=== PATIENT | male | born 1975 | race Caucasian/White ===

== ENCOUNTER 2022-11-29 20:42 | Emergency (ER) | payer MEDICAID, SELFPAY ==
[2022-11-29 20:44] VITALS: BP 127/85; PULSE 91; RESP 18; TEMP 36.7; O2SAT 98; BMI 23.3
--- NOTE | 2022-11-29 20:57 | EX.ED.DYSGE1 ---
HPI History of Present Illness Chief Complaint: Cold Sx Informant: patient Narrative Narrative: Patient presents with concern for sinusitis or COPD. Patient states about a week or 10 days ago he started to get nasal drainage and discharge. He has developed pressure and pain on the side of his face and nose on the right side. He is getting yellow drainage out. He has had nonspecific fevers at home. He is getting postnasal drip and coughing some out. He also notes that he has been wheezing more. He does have albuterol inhaler at home but he has been using it more. He has never been officially diagnosed with COPD. But he is smoked since he was 9 years old and he is suspicious he might have some. He is seeing a physician soon to be evaluated for this. He is not having chest pain. No leg pain or swelling. He has been eating and drinking normally. Nothing specifically makes his symptoms worse. The albuterol does make the breathing better but does not change the nasal drainage. PFSH PFSH Home Medications albuterol sulfate 90 mcg/actuation aerosol inhaler (Ventolin HFA) 2 puff inhalation Q4H PRN PRN Wheezing ##1 11/29/22 [Rx Last Taken Unknown] amoxicillin 875 mg-potassium clavulanate 125 mg tablet 875 mg PO Q12H #20 TABLETS 11/29/22 [Rx Last Taken Unknown] prednisone 20 mg tablet 60 mg PO DAILY #15 TABLETS 11/29/22 [Rx Last Taken Unknown] Allergy/AdvReac Type Severity Reaction Status Date / Time poison manuel extract Allergy Other Verified 11/29/22 20:46 Social History Smoking Status: Current every day smoker tobacco type: cigarettes ROS ROS ED ROS Narrative A complete review of systems was performed and is negative except as documented in the history of present illness. Some specific details below. Constitutional: No recent fevers or chills. He states his normal temperature is about 97.5 and he has gotten some temps in the mid 98's. EYE: No discharge, visual complaints, or pain. ENT: Right cheek discomfort and nasal drainage. No sore throat. No trouble swallowing. CV: No chest pain palpitations or pain with deep breaths. Respiratory: See history of present illness. Wheezing improved with treatment. GI: No abdominal pain. No nausea vomiting diarrhea. No blood in stool. : No frequency dysuria or hematuria. Musculoskeletal: No recent trauma. No pains. No swelling. No myalgias. Skin: No rash. Nondiaphoretic. Neuro: No weakness or numbness. Endocrine: No polyuria or polydipsia. EXAM Physical Exam Narrative Exam Narrative: CONSTITUTIONAL: Patient is nontoxic in appearance. The patient looks comfortable. Work of breathing looks normal. He carries on normal conversation. HEENT: No notable trauma. Mucous membranes moist. He does have some mild right-sided sinus tenderness. No facial swelling though. He also has some white-yellow discharge on the right side only. The left nare is clear. No forehead tenderness. No dental pain. EYES: No conjunctival injection. No proptosis. NECK:No JVD. No stridor. CARDIOVASCULAR: Regular rate. Regular rhythm. No notable murmur. No JVD. RESPIRATORY: No respiratory distress. Breathing is unlabored. However, he does have some mild expiratory wheezing. No rhonchi. No pain with a deep breath. GASTROINTESTINAL: Not distended. Bowel sounds are normal. No tenderness. GENITOURINARY: No tenderness over the bladder. No CVA tenderness. MUSCULOSKELETAL: Atraumatic. No peripheral edema. No cord. No tenderness along the deep venous system. No asymmetry. No distended veins. NEUROLOGICAL: Patient is alert and appropriate. No focal deficit noted. SKIN: No noted rashes. No diaphoresis. PSYCHIATRIC: Patient is calm. Mood is appropriate. Const Vital Signs: 11/29/22 20:44 11/29/22 21:04 11/29/22 21:02 Temperature 98.0 F Temperature Source Temporal Pulse Rate 91 88 Respiratory Rate 18 18 Respiratory Effort Normal Respiratory Depth Normal Respiratory Pattern Normal Normal Blood Pressure 127/85 H Blood Pressure Mean 99 Pulse Ox 98 Oxygen Delivery Method Room Air MDM MDM MDM Narrative Medical decision making narrative: Patient will be given a DuoNeb treatment. I will initiate steroid therapy as he is breaking through his home albuterol. Since he has a likely diagnosis of COPD with a change in quantity or character sputum we will start antibiotics. He also has symptoms of sinusitis in excess of a week so I think we will use Augmentin which should provide appropriate coverage for potential sinusitis and COPD exacerbation. Patient requested COVID test which is also being done. Patient has equal breath sounds and there is no indication of pneumothorax clinically. I do not think an x-ray is required as we are adding antibiotics. I also Blood work is needed. This patient is overall doing well he is just having some exacerbations. Patient is feeling and sounding better after his breathing treatment. COVID test is negative. We reviewed treatment and reasons to return. Discharge Plan Triage Chief Complaint: Cold Sx ED Provider: Fredy Fuller Dx/Rx/DC Orders Clinical Impression: Asthma exacerbation in COPD, Right maxillary sinusitis, Smoking addiction Instructions: ED COPD Flare, ED Sinusitis (Antibiotic Treatment) Prescriptions: New albuterol sulfate [Ventolin HFA] 90 mcg/actuation HFA aerosol inhaler 2 puff inhalation Q4H PRN PRN (Reason: Wheezing) Qty: 1 0RF Rx Instructions: Please dispense with spacer. prednisone 20 mg tablet 60 mg PO DAILY Qty: 15 0RF amoxicillin-pot clavulanate [amoxicillin-pot clavulanate] 875-125 mg tablet 875 mg PO Q12H Qty: 20 0RF Primary Care Provider: SHELLEY JOSEPH Referrals: Alona Callaway MD [Med Staff - [employer]] - 3-5 Days if not improving NOT,DEFINED [Non-Staff] - Disposition Disposition: Home, Self Care
[2022-11-29] MEDS: predniSONE 20 MG Tablet 60 MG PO (21:01)
[2022-11-29] MEDS: Amox/Clavulanate 875 MG Tablet PO (21:01)
[2022-11-29 21:02] VITALS: PULSE 88; RESP 18
[2022-11-29] MEDS: Ipratropium/Albuterol Sulfate 3 ML AMPUL.NEB INHALATION (21:02)
[2022-11-29 22:02] VITALS: BP 124/70; PULSE 80; RESP 18; O2SAT 97
== END 2022-11-29 22:02 | disposition home or self-care (01) ==
LOC: ED 21:23
PROVIDERS: Emergency Provider Emergency Medicine; Visit Provider Emergency Medicine
DX: J44.1 Chronic obstructive pulmonary disease with (acute) exacerbation (principal); R09.82 Postnasal drip; F17.210 Nicotine dependence, cigarettes, uncomplicated; J32.0 Chronic maxillary sinusitis
CPT/HCPCS: 87811; 94640; 99283

== ENCOUNTER 2023-02-06 10:01 | Emergency (ER) | payer MEDICAID, SELFPAY ==
[2023-02-06 10:02] VITALS: BP 130/111; PULSE 81; RESP 14; TEMP 36.7; O2SAT 97; BMI 27.8
--- NOTE | 2023-02-06 10:18 | EDS_ITS ---
HPI History of Present Illness Chief Complaint: Dental Informant: patient Onset/Context/Timing Onset: Days Context: Gradual Onset Timing: Continuous Current Severity: Mild Maximum Severity: Mild Relieved by: NSAIDs Associated Symptoms Assocated Symptom - Dental: jaw swelling and cold sensitivity; Negative for fever or face swelling Narrative Narrative: 39-year-old male complaining of left lower jaw molar pain. Said he lost the cap in about a week ago and the pain is getting worse. Mild swelling. No fever. No trauma. Patient is requesting something stronger than NSAIDs. Prior similar symptoms: Yes Recent Illness/Hospitalization: No PFSH PFSH Home Medications albuterol sulfate 90 mcg/actuation aerosol inhaler (Ventolin HFA) 2 puff inhalation Q4H PRN PRN Wheezing ##1 11/29/22 [Rx Last Taken Unknown] amoxicillin 875 mg-potassium clavulanate 125 mg tablet 875 mg (0.875 x 875-125 mg) PO Q12H #20 TABLETS 11/29/22 [Rx Last Taken Unknown] prednisone 20 mg tablet 60 mg (3 x 20 mg) PO DAILY #15 TABLETS 11/29/22 [Rx Last Taken Unknown] penicillin V potassium 500 mg tablet 500 mg PO 4X/DAY #40 tabs 02/06/23 [Rx Last Taken Unknown] Allergy/AdvReac Type Severity Reaction Status Date / Time poison manuel extract Allergy Other Verified 02/06/23 10:02 Social History Smoking Status: Current every day smoker tobacco type: cigarettes ROS ROS ED ROS Narrative Denies. Review of Systems ROS Unobtainable: Denies due to encephalopathy Constitutional Constitutional ED: Denies chills or fever(s) Eyes Eyes: Denies blurry vision ENT ENT ED: Denies ear pain Cardiovascular Cardiovascular: Denies chest pain Respiratory/Chest Respiratory/Chest: Denies cough or dyspnea Gastrointestinal Gastrointestinal: Reports diarrhea; Denies abdominal pain Genitourinary Genitourinary ED: Denies dysuria or hematuria Musculoskeletal Musculoskeletal: Denies arthralgias Integumentary Denies abscess Neurologic Neurologic: Denies headache(s) Psychiatric Psychiatric: Denies anxiety Endocrine Endocrinology: Denies cold intolerance Hematologic/Lymphatic Hematologic/Lymphatic: Denies easy bleeding Allergic/Immunologic Allergic/Immunologic ED: Denies mouth swelling EXAM Physical Exam Narrative Exam Narrative: Well-appearing middle-age male. Vital signs stable afebrile. HEENT exam patient has very poor dentition multiple degenerating, teeth. Cavities. His last he denies any chest pain lower molar is tender to palpation. There is a minimal bulge in the top of the tooth or loss of 8.. There is no significant gingival or facial swelling. No chest pain no swelling underneath his tongue. No trouble breathing or swallowing. Neck is nontender no lymphadenopathy. Lungs are clear. Heart regular rhythm no murmur. Abdomen soft. Otherwise exam unremarkable. Const Vital Signs: 02/06/23 10:02 Temperature 98.1 F Temperature Source Temporal Pulse Rate 81 Respiratory Rate 14 Blood Pressure 130/111 H Blood Pressure Mean 117 Pulse Ox 97 Oxygen Delivery Method Room Air Positive well nourished and well developed; Negative for obese, cachectic, contractures or unkempt General Appearance ED: well developed and NAD; Negative for unkempt, cachectic or contractures Nutritional Appearance: Negative for cachectic or obese HEENT Denies other Negative for trauma, tenderness or other Face and Sinus: sinuses nontender Mouth ED: Yes oral and palatal mucosa normal, Yes lips normal, Yes tongue normal, Yes salivary gland normal, No mouth trauma, No oral and palatal mucosa abnormal and No salivary gland abnormal Mouth: oral and palatal mucosa normal, lips normal, tongue normal, salivary gland normal, No mouth trauma, No oral and palatal mucosa abnormal and No salivary gland abnormal Teeth and Gingiva: abnormal tooth and associated gingiva, caries, poor dentition and teeth discoloration Throat: posterior oropharynx normal Eyes PERRL and EOMs intact bilaterally General Eye ED: Negative for pale conjunctiva or scleral icterus Visual Acuity: Negative for other Neck no lymphadenopathy, supple and no JVD General: normal visual inspection; Negative for anterior neck swelling, tenderness or submandibular swelling Lymph Lymphatic: no lymphadenopathy noted; Negative for lymphadenopathy Chest Wall inspection of chest normal and palpation of chest normal Resp normal respiratory effort, no retractions and clear to auscultation bilaterally Effort and Inspection: Negative for other Cardio regular rate, regular rhythm, S1 normal heart sound, S2 normal heart sound and no murmurs Jugular Venous Distention: Negative for other Palpation: Negative for palpable S3 or palpable S4 Rate: Negative for bradycardia or tachycardic Rhythm: Negative for abnormal rhythm GI normal to inspection, nondistended, normoactive bowel sounds, non-tender, non- distended and no masses Inspection: Negative for other Palpation: soft Bladder / Kidney Exam: No other Back/Spine Negative for no CVA tenderness General Back: Negative for CVA tenderness Cervical Spine: Negative for other Thoracic Spine / Upper Back: Negative for thoracic spinal tenderness or paraspinal muscle tenderness Extremity normal to inspection and no joint enlargement General Extremety ED: Negative for edema General Extremity: Negative for edema Neuro oriented x3, CN's II-XII intact bilaterally and moves all extremities Sensorium / Orientation: alert, oriented to person, oriented to place and oriented to time; Negative for orientation impaired Motor Exam: strength 5/5 throughout Psych mental status grossly normal Appearance: Negative for unkempt Attitude: No agitated and No other Mood & Affect: Negative for depressed, anxious or tearful Skin no rashes or lesions noted and no wounds General Skin Exam: Negative for other MDM MDM MDM Narrative Medical decision making narrative: 47-year-old male complaint left lower molar dental pain after losing it. Started on Pen-Vee K. Follow-up with local dentist. Tylenol Motrin for pain. He requested something stronger than Motrin for pain explained to him that typically did not write for narcotic pain medications for dental pain. When the nurse went in to medicate the patient discharged to home. He was handed a penicillin for his dental infection and Motrin for pain. He questioner what that was. He said it would not help his pain. He threw the medication at her and told her to stick it up a part of her anatomy. Patient was asked to leave and walked out. I had previously told him that I typically do not write narcotic pain medications for dental pain. History & Record Review Discussion w/independent historian: Patient Discharge Plan Triage Chief Complaint: Dental ED Provider: Mauri Cox Dx/Rx/DC Orders Clinical Impression: Pain, dental, Dental infection Instructions: ED Dental Pain Prescriptions: New penicillin V potassium 500 mg tablet 500 mg PO 4X/DAY Qty: 40 0RF No Action albuterol sulfate [Ventolin HFA] 90 mcg/actuation HFA aerosol inhaler 2 puff inhalation Q4H PRN PRN (Reason: Wheezing) Qty: 1 0RF Rx Instructions: Please dispense with spacer. prednisone 20 mg tablet 60 mg PO DAILY Qty: 15 0RF amoxicillin-pot clavulanate [amoxicillin-pot clavulanate] 875-125 mg tablet 875 mg PO Q12H Qty: 20 0RF Primary Care Provider: SHELLEY JOSEPH Referrals: SHELLEY JOSEPH [Other] Activity Restrictions/Additional Instructions: Call and follow-up with either your dentist or a local dentist soon as possible. Motrin and Tylenol for pain. Ice to your jaw. The antibiotic Pen-Vee K 1 pill 4 times a day till gone. Disposition Disposition: Home, Self Care
[2023-02-06] MEDS: Penicillin Vk 250 MG Tablet 500 MG PO (10:35)
--- NOTE | 2023-02-06 10:40 | ED.RN ---
THIS RN INTO ROOM TO DC PATIENT. PT GIVEN PENICILLIN, ATTEMPTED TO GIVE PT MOTRIN. PT STATES ARE YOU FUCKING KIDDING ME, I NEED NORCO AND PERCOCET. THIS RN CONFIRMS WITH THAT NO NARCOTICS ARE GOING TO BE GIVEN.PT SCREAMS AT THIS RN OPENING HIS MOUTH STATING LOOK AT MY FUCKING TEETH. THIS RN ASKS PT IF HE WANTS MOTRIN.PT STATES SHOW IT UP YOUR FUCKING ASS YOU ARE ALL FUCKING IDIOTS. PT THROWS COFFEE AND EMPTY PILL CUP ACROSS ROOM. 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 PT STATES THIS IS FUCKING RIDICULOUS
== END 2023-02-06 10:54 | disposition home or self-care (01) ==
LOC: ED 10:29
PROVIDERS: Emergency Provider Emergency Medicine; Visit Provider Emergency Medicine
DX: K04.7 Periapical abscess without sinus (principal); F17.210 Nicotine dependence, cigarettes, uncomplicated
CPT/HCPCS: 99283

== ENCOUNTER 2023-07-12 14:55 | Emergency (ER) | payer MEDICAID, SELFPAY ==
[2023-07-12 14:57] VITALS: BP 134/110; PULSE 107; RESP 18; TEMP 36.5; O2SAT 98; BMI 23.4
--- NOTE | 2023-07-12 15:07 | EKG12_ITS ---
Test Reason : CHEST PAIN Blood Pressure : / mmHG Vent. Rate : 073 BPM Atrial Rate : 073 BPM P-R Int : 130 ms QRS Dur : 084 ms QT Int : 356 ms P-R-T Axes : 029 007 029 degrees QTc Int : 392 ms Normal sinus rhythm Normal ECG Confirmed by HANNA HERMAN MD ([id number]), book editor RADHA MILLER ([id number]) on 07/19/2023 8:13:37 AM Referred By: Confirmed By:HANNA HERMAN MD
[2023-07-12 15:34] LABS: Absolute Lymphocyte Count 3.16 X10^3/uL (0.83-4.51); Absolute Neutrophil Count 8.7 X10^3/uL (2.0-7.7); Basophil# 0.05 X10^3/uL; Basophil% 0.4 % (0-1); Eosinophil# 0.16 X10^3/uL; Eosinophils% 1.2 % (0-5); Hematocrit 45.4 % (40-54); Hemoglobin 15.2 g/dL (13.0-16.5); Lymphocyte # 3.16 X10^3/ul (0.83-4.51); Lymphocyte % 24.7 % (19-41); Mean Corp Hgb Conc 33.5 g/dL (32-36); Mean Corpuscular Hgb 31.7 pg (27.0-32.0); Mean Corpuscular Volume 94.6 fL (80-94); Mean Platelet Vol. 10.3 fl (6.2-12.0); Monocyte# 0.68 X10^3/uL; Monocyte% 5.3 % (0-10); NRBC Flagged by Analyzer 0 % (0-5); Neutrophil # 8.73 X10^3/uL (2.7-7.7); Neutrophil % 68.2 % (47-70); Platelet Count 280 K/mm3 (150-450); RBC Distribution Width CV 14.3 % (11.6-14.6); RBC Distribution Width SD 49.9 fl (35.1-43.9); White Blood Count 12.8 K/mm3 (4.4-11.0)
[2023-07-12 15:51] LABS: Anion Gap 2 (5-15); BUN 16 mg/dL (7-18); BUN/Creat Ratio 15.4 RATIO (10-20); Calcium,Total 9.3 mg/dL (8.5-10.1); Chloride 106 mmol/L (98-107); Creatinine, Serum 1.04 mg/dL (0.70-1.30); EST Glomerular Filtration Rate 81 mL/min (>60); Est Glom Filt Rate - Afr Amer 98 mL/min (>60); Estimated Creatinine Clearance 85.92 ml/min; Glucose 103 mg/dL (74-106); Potassium 3.4 mmol/L (3.5-5.1); Sodium Level 137 mmol/L (136-145); Troponin-I HS 3 pg/mL (3.0-78.0)
--- NOTE | 2023-07-12 15:54 | RAD_ITS ---
EXAM: XR CHEST, 1 VIEW CLINICAL INDICATION: SOB/PAIN TECHNIQUE: Frontal view of the chest. COMPARISON: No relevant prior studies available. FINDINGS: LUNGS AND PLEURAL SPACES: No significant abnormality. No consolidation or edema. No pneumothorax. No effusion. HEART: No significant abnormality. Cardiac silhouette not enlarged. MEDIASTINUM: Central airways and mediastinal contour are unremarkable. BONES/JOINTS: No significant abnormality. No acute fracture. SOFT TISSUES: No significant abnormality. RAD/Chest 1 View (Portable) IMPRESSION: No radiographic evidence of acute cardiopulmonary disease. Electronically Signed: Christopher Thornton DO at 16:05 EST ,
[2023-07-12 15:56] VITALS: O2SAT 98
--- NOTE | 2023-07-12 16:32 | NURSING ---
NO OLD EKGS
--- NOTE | 2023-07-12 16:37 | NURSING ---
NO OLD EKGS
--- NOTE | 2023-07-12 16:43 | EX.ED.DYSGE1 ---
HPI <ROSELYN Lozano - Last Filed: 07/12/23 16:50> History of Present Illness Chief Complaint: Cough Narrative Narrative: Patient is a 48-year-old male with history of tobacco use who presents to the emergency department with 8 days of generalized cough, congestion. Patient states over the first couple days he felt like he had a fever, he is continuing to have a significant cough, with green to yellow sputum. Patient was unable to get into his primary care doctor, patient is here for evaluation. PFSH <ROSELYN Lozano - Last Filed: 07/12/23 16:50> PFS Home Medications albuterol sulfate 90 mcg/actuation aerosol inhaler (Ventolin HFA) 2 puff inhalation Q4H PRN PRN Wheezing ##1 11/29/22 [Rx Last Taken Unknown] amoxicillin 875 mg-potassium clavulanate 125 mg tablet 875 mg (0.875 x 875-125 mg) PO Q12H #20 TABLETS 11/29/22 [Rx Last Taken Unknown] prednisone 20 mg tablet 60 mg (3 x 20 mg) PO DAILY #15 TABLETS 11/29/22 [Rx Last Taken Unknown] penicillin V potassium 500 mg tablet 500 mg PO 4X/DAY #40 tabs 02/06/23 [Rx Last Taken Unknown] albuterol sulfate 90 mcg/actuation aerosol inhaler (Ventolin HFA) 2 puff inhalation Q4H PRN PRN Wheezing 14 days #1 amp 07/12/23 [Rx Last Taken Unknown] azithromycin 250 mg tablet See Rx Instructions PO .COMPLEX #6 tabs 07/12/23 [Rx Last Taken Unknown] Allergy/AdvReac Type Severity Reaction Status Date / Time poison manuel extract Allergy Other Verified 07/12/23 14:56 Social History Smoking Status: Current every day smoker tobacco type: cigarettes ROS <ROSELYN Lozano - Last Filed: 07/12/23 16:50> ROS ED ROS Narrative Constitutional: Negative for fever, chills, weight loss, weakness Eyes: Negative for vision loss, vision change, double vision ENT: Negative for any sore throat, ear pain, congestion Cardiovascular: Negative for any chest pain, tightness, palpitations Respiratory: Negative for any hemoptysis, dyspnea, dyspnea on exertion, orthopnea. Positive for cough, sputum production Gastrointestinal: Negative for any abdominal pain, nausea, vomiting, diarrhea, constipation, blood in stool, blood in vomit : Negative for any urinary frequency, dysuria, retention, blood in urine Muscle skeletal: Negative for any myalgias, arthralgias, neck pain, back pain Neurological: Negative for any headache, syncope, paresthesias, dizziness Skin: Negative for any rashes, lumps, itching, abrasions, lacerations Psychiatric: Negative for any depression, anxiety, stress, suicidal ideation, homicidal ideation Hematologic: Negative for any easy bruising, excessive bruising, easy bleeding Allergies: Negative for any eczema, hives, rash EXAM <ROSELYN Lozano - Last Filed: 07/12/23 16:50> Physical Exam Narrative Exam Narrative: Vital signs reviewed. HEET: Head normocephalic atraumatic, TMs clear bilaterally. Posterior pharynx is clear, moist mucous membranes. Nares clear bilaterally. Neck: Supple with no lymphadenopathy or tenderness. No signs of meningismus. Cardiac: Regular rate and rhythm no murmurs gallops or rubs, equal peripheral pulses bilaterally. Respiratory: Lungs clear to auscultation bilaterally. No chest tenderness. Abdomen: Soft, nontender, nondistended. No abdominal bruit or pulsatile masses. No hepatosplenomegaly Extremities: No peripheral edema, no signs of gross trauma or deformity. Active full range of motion of all extremities. Neuro: Cranial nerves II through XII intact, no focal neurological deficits. Skin: Clean dry and intact with no rash, purpura, petechiae, vesicles or pustules. Backs/flank: No CVA tenderness, no midline spinal tenderness, no deformity. Psych: Normal mood and affect. No SI, HI or acute psychosis. Const Vital Signs: 07/12/23 14:57 07/12/23 15:56 07/12/23 15:56 Temperature 97.7 F L Temperature Source Temporal Pulse Rate 107 H Respiratory Rate 18 Respiratory Effort Respiratory Depth Respiratory Pattern Blood Pressure 134/110 H Blood Pressure Mean 118 Pulse Ox 98 98 98 Oxygen Delivery Method Room Air Room Air 07/12/23 16:56 07/12/23 16:57 Temperature Temperature Source Pulse Rate 87 Respiratory Rate 17 Respiratory Effort Normal Non-Labored Respiratory Depth Normal Respiratory Pattern Normal Blood Pressure 152/76 H Blood Pressure Mean 101 Pulse Ox 97 Oxygen Delivery Method Room Air <Anant Edward MD - Last Filed: 07/12/23 22:54> Physical Exam Const Vital Signs: 07/12/23 14:57 07/12/23 15:56 07/12/23 15:56 Temperature 97.7 F L Temperature Source Temporal Pulse Rate 107 H Respiratory Rate 18 Respiratory Effort Respiratory Depth Respiratory Pattern Blood Pressure 134/110 H Blood Pressure Mean 118 Pulse Ox 98 98 98 Oxygen Delivery Method Room Air Room Air 07/12/23 16:56 07/12/23 16:57 Temperature Temperature Source Pulse Rate 87 Respiratory Rate 17 Respiratory Effort Normal Non-Labored Respiratory Depth Normal Respiratory Pattern Normal Blood Pressure 152/76 H Blood Pressure Mean 101 Pulse Ox 97 Oxygen Delivery Method Room Air MDM <ROSELYN Lozano - Last Filed: 07/12/23 16:50> [facility] Lab Data Labs: Laboratory Results - last 24 hr 07/12/23 15:20 WBC 12.8 H RBC 4.80 Hgb 15.2 Hct 45.4 MCV 94.6 H MCH 31.7 MCHC 33.5 RDW Std Deviation 49.9 H RDW Coeff of Bg 14.3 Plt Count 280 MPV 10.3 Immature Gran % (Auto) 0.200 Neut % (Auto) 68.2 Lymph % (Auto) 24.7 Arthur % (Auto) 5.3 Eos % (Auto) 1.2 Baso % (Auto) 0.4 Absolute Neuts (auto) 8.7 H Absolute Lymphs (auto) 3.16 Nucleated RBC % 0 Sodium 137 Potassium 3.4 L Chloride 106 Carbon Dioxide 29.0 Anion Gap 2 L BUN 16 Creatinine 1.04 Estim Creat Clear Calc 85.92 Est GFR (MDRD) Af Amer 98 Est GFR (MDRD) Non-Af 81 BUN/Creatinine Ratio 15.4 Glucose 103 Calcium 9.3 Troponin I High Sens 3 Radiography Diagnostic Testing: Clinical Impression(s) from Imaging Studies Chest X-Ray 07/12/23 15:54 IMPRESSION: No radiographic evidence of acute cardiopulmonary disease. Electronically Signed: Christopher Thornton DO at 16:05 EST , EKG Normal sinus rhythm: Attestation: I personally reviewed and interpreted this EKG as follows: Interpretation: No Acute Injury Pattern Comments: Normal sinus rhythm, rate of 73 bpm, OR 130 ms, QRS duration 84 ms, no acute ST elevation, no acute infarct noted. Treatment and Re-Evaluation :: Patient appears generally well, patient appears nontoxic, vital signs are stable. Presenting to the emergency department with complaints of cough, feeling that his chest is tight, sputum production. Patient differential diagnose includes community-acquired pneumonia, consequent dryness, viral syndrome such as influenza, COVID-19. Patient did receive protocol orders and did have a laboratory values, patient CBC shows slight leukocytosis with white blood count of 12.8, patient's chemistries were unremarkable troponin was negative. No evidence of any ACS or NH. Chest x-ray showed no signs or symptoms of pneumonia. After speaking with the patient, he does use tobacco, he has been having productive cough for the last 8 days. Patient be given albuterol inhaler as well as a Z-René to cover for any atypical pneumonia. Patient is happy with the plan of care, he is instructed to decrease his tobacco use, patient stable for discharge. <Anant Edward MD - Last Filed: 07/12/23 22:54> [facility] MDM Narrative Medical decision making narrative: Dr. Edward: I have personally performed a face to face assessment of the patient and have reviewed the SERGEI Note. I performed a substantive portion of the visit including all aspects of the following. My james findings include: History is cough, upper respiratory infection type symptoms, chest tightness. Exam is afebrile. Vital signs noted. Regular rate and rhythm. Lungs clear to auscultation bilaterally. Abdomen soft nontender with normal active bowel sounds. Neurological examination nonfocal and nonlateralizing. Medical Decision Making: Protocone orders entered. Check labs. Chest x-ray. Chest x-ray interpreted by myself independently shows no evidence of an acute process, no pneumonia or pneumothorax. I reviewed the radiology report which confirms my independent interpretation. Smoking cessation discussed. Antibiotics. Discharge. Other additions or changes: [None] History & Record Review Discussion w/independent historian: Patient Additional record(s) reviewed:: Prior ED visit Lab Data Attestation: I reviewed the patient's lab results. Labs: Laboratory Results - last 24 hr 07/12/23 15:20 WBC 12.8 H RBC 4.80 Hgb 15.2 Hct 45.4 MCV 94.6 H MCH 31.7 MCHC 33.5 RDW Std Deviation 49.9 H RDW Coeff of Bg 14.3 Plt Count 280 MPV 10.3 Immature Gran % (Auto) 0.200 Neut % (Auto) 68.2 Lymph % (Auto) 24.7 Arthur % (Auto) 5.3 Eos % (Auto) 1.2 Baso % (Auto) 0.4 Absolute Neuts (auto) 8.7 H Absolute Lymphs (auto) 3.16 Nucleated RBC % 0 Sodium 137 Potassium 3.4 L Chloride 106 Carbon Dioxide 29.0 Anion Gap 2 L BUN 16 Creatinine 1.04 Estim Creat Clear Calc 85.92 Est GFR (MDRD) Af Amer 98 Est GFR (MDRD) Non-Af 81 BUN/Creatinine Ratio 15.4 Glucose 103 Calcium 9.3 Troponin I High Sens 3 Radiography Diagnostic Testing: Clinical Impression(s) from Imaging Studies Chest X-Ray 07/12/23 15:54 IMPRESSION: No radiographic evidence of acute cardiopulmonary disease. Electronically Signed: Christopher Thornton DO at 16:05 EST , Discharge Plan Triage Chief Complaint: Cough ED Midlevel Provider: Jesse Crain ED Provider: Anant Edward Dx/Rx/DC Orders Clinical Impression: Bronchitis Instructions: ED Upper Resp Infec Abx Tx Prescriptions: New azithromycin 250 mg tablet See Rx Instructions .ROUTE .COMPLEX Qty: 6 0RF Rx Instructions: For 250 mg dose pack: take 500 mg today (day 1), then 250 mg for 4 days (days 2-5) albuterol sulfate [Ventolin HFA] 90 mcg/actuation HFA aerosol inhaler 2 puff inhalation Q4H PRN PRN (Reason: Wheezing) 14 Days Qty: 1 0RF No Action albuterol sulfate [Ventolin HFA] 90 mcg/actuation HFA aerosol inhaler 2 puff inhalation Q4H PRN PRN (Reason: Wheezing) Qty: 1 0RF Rx Instructions: Please dispense with spacer. prednisone 20 mg tablet 60 mg PO DAILY Qty: 15 0RF amoxicillin-pot clavulanate [amoxicillin-pot clavulanate] 875-125 mg tablet 875 mg PO Q12H Qty: 20 0RF penicillin V potassium 500 mg tablet 500 mg PO 4X/DAY Qty: 40 0RF Primary Care Provider: [facility] Doctor,Out of Referrals: [facility] Doctor,Out of [Primary Care Provider] - Activity Restrictions/Additional Instructions: Take antibiotics until finished, try to decrease your smoking. Use of your inhaler as needed. Disposition Disposition: Home, Self Care Discharge Date/Time: 07/12/23 16:58
[2023-07-12 16:56] VITALS: O2SAT 97
[2023-07-12 16:57] VITALS: BP 152/76; PULSE 87; RESP 17; O2SAT 97
== END 2023-07-12 16:58 | disposition home or self-care (01) ==
LOC: ED 16:53
PROVIDERS: Emergency Provider Emergency Medicine; Visit Provider Emergency Medicine
DX: J40 Bronchitis, not specified as acute or chronic (principal); F17.210 Nicotine dependence, cigarettes, uncomplicated
CPT/HCPCS: 71045; 80048; 84484; 85025; 93005; 94760; 99283; A4216

== ENCOUNTER → 2024-10-26 | Outpatient (CLI) | payer MEDICAID, SELFPAY ==
--- NOTE | 2024-10-26 13:34 | CT_ITS ---
PROCEDURE: LOW DOSE CT LUNG SCREENING 10/26/2024 REASON FOR EXAM: SOB TECHNIQUE: Low Dose CT Lung screening without contrast. Coronal and Sagittal reconstruction series were provided. One or more dose reduction techniques were used (e.g., Automated exposure control, adjustment of the mA and/or kV according to patient size, use of iterative reconstruction technique). REFERENCE LINK: [employer] Lung-RADS RADIATION DOSE SUMMARY: CTDlvol: 2.14 mGy DLP: 79.38 mGycm COMPARISON: None. FINDINGS: Note that evaluation of the vasculature, jesus, and soft tissues is limited in the absence of IV contrast. Heart/pericardium: Mild but multivessel coronary atherosclerosis and/or stents. Aorta: Unremarkable. Pulmonary arteries: Unremarkable. Lymph nodes: Subcarinal node difficult to delineate from the adjacent esophagus, roughly 10 mm short axis. Lungs/pleura: Emphysema. Mild atelectasis/scarring. Fissural likely intrapulmonary lymph node along the minor fissure. Ground-glass nodule in the RIGHT upper lobe, 4 x 3 mm (series 2, image 74). Airways: Unremarkable. Chest wall: Unremarkable. Upper abdomen: Grossly unremarkable. Musculoskeletal: Partially imaged ACDF. Trace thoracolumbar levoscoliosis may be positional.. CT/Low Dose CT Lung Screening IMPRESSION: 1. Lung-RADS category: 2S (benign appearance or behavior, <1% chance of maligna ncy); continue annual screening with LDCT. 2. Other clinically significant or potentially significant non-lung cancer find ings: Borderline mediastinal node, nonspecific and potentially reactive in the absence of known malignancy. Correlate with medica l history and recommend attention on above follow-up imaging. 3. Additional description as above. Recommendations per [employer]. Lung CT Screening Reporting and Data System (Lung-RADS) v. 2022 Reading Location: [id number]
== END | disposition home or self-care (01) ==
PROVIDERS: Referring Provider Physician Assistant; Visit Provider Physician Assistant
DX: R06.02 Shortness of breath (principal); F17.210 Nicotine dependence, cigarettes, uncomplicated
CPT/HCPCS: 71271

== ENCOUNTER 2025-03-19 20:34 | Emergency (ER) | payer MEDICAID, SELFPAY ==
[2025-03-19 20:35] VITALS: BP 137/69; PULSE 54; RESP 16; TEMP 37.2; O2SAT 98; BMI 21.5
--- NOTE | 2025-03-19 23:00 | EDS_ITS ---
HPI History of Present Illness Chief Complaint: Dental Informant: patient Narrative Narrative: Patient is a 49-year-old male who reports a past medical history of dental problems. He states that he has multiple cavities and knows that he needs to have his teeth pulled. He states that he has had intermittent pain in the left lower jaw/tooth for the last few days but in the last 24 hours she has had increased pain and swelling. He states this reminds him of a previous dental infection and secondary to this presents for evaluation. PFSH PFSH Home Medications ?Medication ?Instructions ?Recorded ?Last Taken ?Type albuterol sulfate 90 mcg/actuation 2 puff inhalation Q 4H PRN PRN 11/29/22 Unknown Rx aerosol inhaler (Ventolin HFA) Wheezing ##1 albuterol sulfate 90 mcg/actuation 2 puff inhalation Q 4H PRN PRN 07/12/23 Unknown Rx aerosol inhaler (Ventolin HFA) Wheezing 14 days #1 amp clindamycin HCl 300 mg capsule 300 mg PO 4X/DAY 10 day s #40 03/19/25 Unknown Rx (Cleocin HCl) CAPSULES gabapentin 800 mg tablet 1,200 mg PO TID 03/19/25 Unk nown History ibuprofen 800 mg tablet 800 mg PO TID PRN PRN pain 0 03/19/25 Unknown History oxycodone-acetaminophen 5 mg-325 1 tab PO Q6H PRN pain 3 days #12 03/19/25 Unknown Rx mg tablet (Percocet) tabs tizanidine 4 mg tablet 4 mg PO BID 03/19/25 Unknown History Allergy/AdvReac Type Severity Reaction Status Date / Time poison manuel extract Allergy Other Verified 03/19/25 20:35 Social History Smoking Status: Current every day smoker tobacco type: cigarettes ROS ROS ED Constitutional Constitutional ED: Denies chills or fever(s) ENT ENT ED: Reports other Details: Positive dental pain Cardiovascular Cardiovascular: Denies chest pain Respiratory/Chest Respiratory/Chest: Denies cough or dyspnea Gastrointestinal Gastrointestinal: Denies abdominal pain, diarrhea, nausea or vomiting Musculoskeletal Musculoskeletal: Denies neck pain Integumentary Denies rash Neurologic Neurologic: Denies headache(s) Hematologic/Lymphatic Hematologic/Lymphatic: Denies easy bleeding or easy bruising Allergic/Immunologic Allergic/Immunologic ED: Denies mouth swelling or tongue swelling EXAM Physical Exam Const Vital Signs: 03/19/25 20:35 03/19/25 23:09 Temperature 98.9 F 98.2 F Temperature Source Oral Pulse Rate 54 L 61 Respiratory Rate 16 15 Blood Pressure 137/69 H 157/97 H Blood Pressure Mean 91 117 Pulse Ox 98 97 Oxygen Delivery Method Room Air Positive well nourished and well developed General Appearance ED: well developed; Negative for pallor HEENT Reports moist mucous membranes HEENT Narrative: No tongue or lip swelling no oral lesions no airway edema or compromise No signs of ANUG There are multiple dental caries noted. There is mild soft tissue swelling and faint erythema in the left lower jaw near the molar teeth concerning for d eveloping infection but no obvious abscess formation noted. Eyes PERRL and EOMs intact bilaterally General Eye ED: Negative for scleral icterus Neck supple Neck Narrative: No brawny edema in the submental space to suggest Dioni's angina Positive anterior cervical lymphadenopathy noted greatest on left Resp normal respiratory effort and clear to auscultation bilaterally Cardio regular rate and regular rhythm Extremity normal to inspection Neuro oriented x3, CN's II-XII intact bilaterally and no sensory deficits noted Sensorium / Orientation: alert Motor Exam: strength 5/5 throughout Psych mental status grossly normal Skin no rashes or lesions noted General Skin Exam: Negative for jaundice or pallor MDM MDM MDM Narrative Medical decision making narrative: Patient arrived to the ER afebrile. He reported intermittent pain in the left jaw for the last few days which has now become constant. By physical exam he has developing infection with soft tissue swelling and faint erythema. However there is no sign of dental abscess and therefore no need for incision and drain. He does not have any signs of ANUG or Dioni's angina and there is no sign of airway compromise so he has no need for laboratory studies or CT scan. Patient be placed on antibiotics secondary to concern for developing infection but as he does not have signs of systemic infection or airway compromise he is otherwise safe for discharge History & Record Review Discussion w/independent historian: Patient Discharge Plan Triage Chief Complaint: Dental ED Provider: Jason Clay Dx/Rx/DC Orders Clinical Impression: Pain due to dental caries, Dental infection, Tobacco use Instructions: ED Dental Pain, ED Tooth Abscess Prescriptions: New clindamycin HCl [Cleocin HCl] 300 mg capsule 300 mg PO 4X/DAY 10 Days Qty: 40 0RF oxycodone-acetaminophen [Percocet] 5-325 mg tablet 1 tab PO Q6H PRN (Reason: pain) 3 Days Qty: 12 0RF No Action albuterol sulfate [Ventolin HFA] 90 mcg/actuation HFA aerosol inhaler 2 puff inhalation Q4H PRN PRN (Reason: Wheezing) Qty: 1 0RF Rx Instructions: Please dispense with spacer. albuterol sulfate [Ventolin HFA] 90 mcg/actuation HFA aerosol inhaler 2 puff inhalation Q4H PRN PRN (Reason: Wheezing) 14 Days Qty: 1 0RF ibuprofen 800 mg tablet 800 mg PO TID PRN PRN (Reason: pain) gabapentin 800 mg tablet 1,200 mg PO TID tizanidine 4 mg tablet 4 mg PO BID Primary Care Provider: SHELLEY JOSEPH Referrals: Care Physician,No Primary [Non-Staff] - Activity Restrictions/Additional Instructions: Please take your antibiotic as directed as your history and exam indicate you h ave a developing dental infection. Follow-up with your dentist for further evaluation and return to the ER should you have any further concerns Print Language: Arabic Disposition Disposition: Home, Self Care Discharge Date/Time: 03/19/25 23:16
[2025-03-19 23:09] VITALS: BP 157/97; PULSE 61; RESP 15; TEMP 36.8; O2SAT 97
== END 2025-03-19 23:16 | disposition home or self-care (01) ==
LOC: ED 23:13
PROVIDERS: Emergency Provider Emergency Medicine; Visit Provider Emergency Medicine
DX: K02.9 Dental caries, unspecified (principal); K04.7 Periapical abscess without sinus; F17.210 Nicotine dependence, cigarettes, uncomplicated
CPT/HCPCS: 99283

== ENCOUNTER 2025-04-18 17:04 | Emergency (ER) | payer MEDICAID, SELFPAY ==
[2025-04-18 17:05] VITALS: BP 134/92; PULSE 75; RESP 20; TEMP 36.9; O2SAT 96; BMI 20.2
[2025-04-18 17:07] VITALS: BP 134/92; PULSE 75; RESP 20; TEMP 36.9; O2SAT 96
--- NOTE | 2025-04-18 17:15 | EDS_ITS ---
HPI History of Present Illness Chief Complaint: Chest Pain Informant: patient Onset/Context/Timing Onset: Days (2) Activity at onset: sudden Timing: Continuous Quality: Positive for Sharp Location: Right Chest Worsened By: Breathing Relieved By: Nothing Associated Symptoms: Positive for Dyspnea, Cough, Fever and Lightheadedness; Negative for Nausea, Vomiting, Diaphoresis, Acid Reflux or Palpitations Narrative Narrative: Patient presents with right-sided chest pain that began 2 days ago. Patient states the pain is sharp. Patient states the pain is over the right lateral chest. Patient states the pain is constant. Patient states it is worse with deep breathing. Patient states nothing seems to help with the pain. Patient admits to a cough with some clear sputum. Patient also admits to some subjective fevers and chills. Patient admits to some shortness of breath and lightheadedness. Patient denies any nausea or vomiting. Patient denies any palpitations. CVD Risk Factors: Positive for Smoking; Negative for Hypertension, Diabetes, Hypercholesterolemia or Family History 1' </=55 PE Risk Factors: Negative for Recent Travel/Surgery, Recent Immobilization, Prior DVT or PE or Cancer [facility] Medical History (Updated 04/18/25 @ 19:[address] Edwar Celestin, DO) COPD (chronic obstructive pulmonary disease) Status post repair of fracture of orbit Home Medications ?Medication ?Instructions ?Recorded ?Last Taken ?Type albuterol sulfate 90 mcg/actuation 2 puff inhalation Q 4H PRN PRN 11/29/22 Unknown Rx aerosol inhaler (Ventolin HFA) Wheezing ##1 albuterol sulfate 90 mcg/actuation 2 puff inhalation Q 4H PRN PRN 07/12/23 Unknown Rx aerosol inhaler (Ventolin HFA) Wheezing 14 days #1 amp clindamycin HCl 300 mg capsule 300 mg PO 4X/DAY 10 day s #40 03/19/25 Unknown Rx (Cleocin HCl) CAPSULES gabapentin 800 mg tablet 1,200 mg PO TID 03/19/25 Unk nown History ibuprofen 800 mg tablet 800 mg PO TID PRN PRN pain 0 03/19/25 Unknown History oxycodone-acetaminophen 5 mg-325 1 tab PO Q6H PRN pain 3 days #12 03/19/25 Unknown Rx mg tablet (Percocet) tabs tizanidine 4 mg tablet 4 mg PO BID 03/19/25 Unknown History Allergy/AdvReac Type Severity Reaction Status Date / Time poison manuel extract Allergy Other Verified 04/18/25 17:05 Surgical History (Updated 04/18/25 @ 17:[address] Edwar Celestin DO) Hx of inguinal herniorrhaphy Hx of cervical spinal arthrodesis Hx of cervical discectomy Social History Smoking Status: Current every day smoker tobacco type: cigarettes ROS ROS ED Constitutional Constitutional ED: Reports chills, fever(s) and subjective Eyes Eyes: Denies blurry vision or change in vision ENT ENT ED: Denies rhinorrhea or sore throat Cardiovascular Cardiovascular: Reports chest pain; Denies palpitations Respiratory/Chest Respiratory/Chest: Reports cough and dyspnea Gastrointestinal Gastrointestinal: Denies nausea or vomiting Genitourinary Genitourinary ED: Denies dysuria or hematuria Musculoskeletal Musculoskeletal: Reports neck pain; Denies back pain Integumentary Denies abscess or rash Neurologic Neurologic: Denies headache(s) or weakness Allergic/Immunologic Allergic/Immunologic ED: Denies mouth swelling or urticaria EXAM Physical Exam Const Vital Signs: 04/18/25 17:05 04/18/25 18:31 04/18/25 19:09 Temperature 98.5 F Temperature Source Oral Pulse Rate 75 Respiratory Rate 20 H Respiratory Effort Normal Blood Pressure 134/92 H Blood Pressure Mean 106 Pulse Ox 96 Oxygen Delivery Method Room Air Room Air Positive well nourished and well developed Constitutional Narrative: BMI is 20.3. General Appearance ED: well developed and NAD HEENT Reports moist mucous membranes Neck supple and no JVD Chest Wall inspection of chest normal and palpation of chest normal Resp normal respiratory effort and clear to auscultation bilaterally Cardio regular rate and regular rhythm GI soft to palpation, non-tender and non-distended Extremity normal to inspection General Extremety ED: Negative for edema or tenderness General Extremity: Negative for edema Neuro oriented x3, CN's II-XII intact bilaterally and no sensory deficits noted Sensorium / Orientation: awake and alert Motor Exam: strength 5/5 throughout Psych mental status grossly normal Heart Score History: Slightly/Non-Suspicious ECG: Normal Age: >45 - <65 years Risk Factors: 1 or 2 Risk Factors Troponin: </= Normal Limit Score: 2 MDM MDM MDM Narrative Medical decision making narrative: Differential diagnosis includes pneumonia, bronchitis, pneumothorax, musculoskeletal pain, cardiac dysrhythmia, cardiac ischemia, electrolyte abnormality, and anxiety. EKG will be obtained to assess for cardiac dysrhythmia and cardiac ischemia. Chest x-ray will be obtained to assess for pneumonia, bronchitis, pneumothorax. CBC will be obtained to assess for leukocytosis and anemia. Basic metabolic profile will be obtained to assess for electrolyte abnormality and renal function. High-sensitivity troponin will be obtained to assess for cardiac ischemia. Lab Data Attestation: I reviewed the patient's lab results. Lab results narrative: CBC was reviewed and was within normal limits. Basic metabolic profile was reviewed and was within normal limits. High-sensitivity troponin was reviewed and was less than 6. Labs: Laboratory Results - last 24 hr 04/18/25 18:26 WBC 9.1 RBC 4.53 L Hgb 14.6 Hct 42.6 MCV 94.0 MCH 32.2 H MCHC 34.3 RDW Std Deviation 47.8 H RDW Coeff of Bg 13.8 Plt Count 260 MPV 10.4 Immature Gran % (Auto) 0.200 Neut % (Auto) 56.6 Lymph % (Auto) 34.9 Gila % (Auto) 7.1 Eos % (Auto) 0.8 Baso % (Auto) 0.4 Absolute Neuts (auto) 5.2 Absolute Lymphs (auto) 3.18 Nucleated RBC % 0 Sodium 140 Potassium 4.3 Chloride 106 Carbon Dioxide 23.5 Anion Gap 10 BUN 8 Creatinine 0.76 Estim Creat Clear Calc 102.63 Est GFR (MDRD) Non-Af 109 BUN/Creatinine Ratio 10.1 Glucose 101 H Calcium 9.2 Troponin T High Sens < 6 Radiography Chest X-Ray - ED: 2 View, Read by ED Physician, Read by Radiologist and No Acute Disease Diagnostic Testing: Clinical Impression(s) from Imaging Studies Chest X-Ray 04/18/25 18:33 IMPRESSION: Bibasilar atelectasis. No other acute cardiopulmonary abnormality. Reading Location: [facility] PA and lateral chest x-ray was obtained. There are 2 views. On my independent interpretation, lung nam show bibasilar atelectasis. There is normal cardiac silhouette. Bony thorax is normal. There is no acute process noted. Radiologist also interpreted the x-ray and agrees. EKG Initial EKG: Attestation: I personally reviewed and interpreted this EKG as follows: Interpretation: Sinus Rhythm (62) and No Acute Injury Pattern Comments: EKG was obtained. On my independent interpretation, it showed a normal sinus rhythm with a rate of 62. [place] interval, QRS interval, and QTc intervals were all normal. Levels was normal. There are no acute ST or T wave changes. Prior EKG tracings: available for review Prior: Unchanged (07/12/2023) Treatment and Re-Evaluation :: Patient was given aspirin here. Patient was advised of his findings. Patient has a HEART score of 2. Patient was advised that this is low risk for acute cardiac event. Patient was advised that this could be musculoskeletal pain. Patient was instructed to follow-up with his primary care physician in 5 to 7 days. Patient was instructed take Tylenol or ibuprofen as needed for pain. Patient was instructed to return if worse in any way. Patient understood and was agreeable with the plan. All questions were answered. Discharge Plan Triage Chief Complaint: Chest Pain ED Provider: Edwar Celestin Dx/Rx/DC Orders Clinical Impression: Right-sided chest pain, Tobacco use disorder Instructions: ED Chest Pain, Uncertain Cause Prescriptions: No Action albuterol sulfate [Ventolin HFA] 90 mcg/actuation HFA aerosol inhaler 2 puff inhalation Q4H PRN PRN (Reason: Wheezing) Qty: 1 0RF Rx Instructions: Please dispense with spacer. albuterol sulfate [Ventolin HFA] 90 mcg/actuation HFA aerosol inhaler 2 puff inhalation Q4H PRN PRN (Reason: Wheezing) 14 Days Qty: 1 0RF ibuprofen 800 mg tablet 800 mg PO TID PRN PRN (Reason: pain) gabapentin 800 mg tablet 1,200 mg PO TID tizanidine 4 mg tablet 4 mg PO BID clindamycin HCl [Cleocin HCl] 300 mg capsule 300 mg PO 4X/DAY 10 Days Qty: 40 0RF oxycodone-acetaminophen [Percocet] 5-325 mg tablet 1 tab PO Q6H PRN (Reason: pain) 3 Days Qty: 12 0RF Primary Care Provider: [facility] Doctor,Out of Referrals: Care Physician,No Primary [Non-Staff, Medical] [facility] Doctor,Out of [Primary Care Provider, Medical] - 5-7 Days Print Language: Sammarinese Disposition Disposition: Home, Self Care
--- NOTE | 2025-04-18 17:47 | EKG12_ITS ---
Test Reason : CP Blood Pressure : */* mmHG Vent. Rate : 62 BPM Atrial Rate : 62 BPM P-R Int : 128 ms QRS Dur : 82 ms QT Int : 362 ms P-R-T Axes : -11 4 14 degrees QTcB Int : 367 ms Normal sinus rhythm Normal ECG Confirmed by ALFREDO GARZA, LYUDMILA ([id number]), metropolitan editor LEENA ESCALONA ([id number]) on 04/22/2025 6:04:35 AM Referred By: NORRIS/JI Confirmed By: LYUDMILA FUENTES MD
[2025-04-18 18:04] VITALS: BP 125/72; PULSE 70; RESP 20; O2SAT 98
--- NOTE | 2025-04-18 18:33 | RAD_ITS ---
PROCEDURE: CHEST PA AND LATERAL 04/18/2025 REASON FOR EXAM: CHEST PAIN TECHNIQUE: Procedure Code: RADCXR Modality: DX Procedure: CHEST PA AND LATERAL COMPARISON: Chest x-ray 07/12/2023 FINDINGS: Hardware: Monitoring electrodes overlying chest wall. Heart: The heart size is normal. Mediastinum: The mediastinal contour is unremarkable. Lungs: Prominent bilateral pulmonary vasculature. Bibasilar atelectasis. Bones: Partially visualized ACDF. RAD/Chest PA and Lateral IMPRESSION: Bibasilar atelectasis. No other acute cardiopulmonary abnormality. Reading Location: [id number]
[2025-04-18 18:39] LABS: Hematocrit 42.6 % (40-54); Hemoglobin 14.6 g/dL (13.0-16.5); Immature Granulocytes Count 0.020 X10^3/uL (0.0-0.0); Mean Corp Hgb Conc 34.3 g/dL (32-36); Mean Corpuscular Volume 94.0 fL (80-94); Mean Platelet Vol. 10.4 fl (6.2-12.0); NRBC Flagged by Analyzer 0 % (0-5); Platelet Count 260 K/mm3 (150-450); RBC Distribution Width CV 13.8 % (11.6-14.6); RBC Distribution Width SD 47.8 fl (35.1-43.9); Red Blood Count 4.53 M/mm3 (4.6-6.2); White Blood Count 9.1 K/mm3 (4.4-11.0)
[2025-04-18 19:00] VITALS: BP 120/86; PULSE 70; RESP 16; O2SAT 98
[2025-04-18 19:10] LABS: Anion Gap 10 (5-15); BUN 8 mg/dL (4-19); BUN/Creat Ratio 10.1 RATIO (10-20); Calcium,Total 9.2 mg/dL (7.6-11.0); Carbon Dioxide 23.5 mmol/L (21.0-32.0); Chloride 106 mmol/L (98-108); Estimated Creatinine Clearance 102.63 ml/min (50-250); Glucose 101 mg/dL (70-99); Potassium 4.3 mmol/L (3.3-5.1); Troponin T High Sensitivity < 6 ng/L (<=22)
[2025-04-18 19:24] VITALS: BP 120/86; PULSE 70; RESP 16; TEMP 36.9; O2SAT 98
== END 2025-04-18 19:33 | disposition home or self-care (01) ==
PROVIDERS: Emergency Provider Emergency Medicine; Visit Provider Emergency Medicine
DX: R07.89 Other chest pain (principal); J44.9 Chronic obstructive pulmonary disease, unspecified; F17.210 Nicotine dependence, cigarettes, uncomplicated
CPT/HCPCS: 71046; 80048; 84484; 85025; 93005; 99284; A4216